=== PATIENT | female | born 1940 | race Caucasian/White ===

== ENCOUNTER → 2016-08-01 16:33 | Outpatient (CLI) | payer MEDICARE ==
[2015-10-13 07:06] VITALS: BMI 24.6
[~2016-08-01 16:33] MED LIST: ASPIRIN 81 MG E81 MG PO; B-12 DOTS500 MCG PO; BENADRYL50 MG PO; BENTYL10 MG PO; BETAGAN 0.5% OPH5 ML EACH EYE; CALCIUM 500 + D1 TAB PO; CARAFATE1 G PO; COUMADIN5 MG PO; ELIQUIS2.5 MG PO; FLORINEF 0.1 M0.1 MG PO; FOLATE0.4 MG PO; GLUCOSAMINE & C1 CAP PO; HYDROCODONE-APA1 TAB PO; K-DUR20 MEQ PO; LEVSIN/ANASP0.125 MG PO; MS CONTIN15 MG PO; MULTIPLE VITAMI1 TA1 PO; NEXIUM40 MG PO; PEPCID40 MG PO; PERCOCET 10/3251 TA1 PO; PRILOSEC20 MG PO; PROBIOTIC1 EAC1 PO; STRESS TAB; SYNTHROID25 MCG PO; THERMOTABS 1 GM1 GM PO; TYLENOL ARTHRITIS PO; [UNRECOGNIZED DRUG - OTHER]
== END | disposition home or self-care (01) ==
LOC: D.MAMMO 07-10 14:45
DX: Z12.31 Encounter for screening mammogram for malignant neoplasm of breast (principal)

== ENCOUNTER → 2018-07-17 17:15 | Outpatient (CLI) | payer MEDICARE ==
[2015-10-13 07:06] VITALS: BMI 24.6
== END | disposition home or self-care (01) ==
LOC: D.MAMMO 13:15
DX: Z12.31 Encounter for screening mammogram for malignant neoplasm of breast (principal)

== ENCOUNTER → 2019-03-11 09:25 | Outpatient (CLI) | payer MEDICARE ==
[2015-10-13 07:06] VITALS: BMI 24.6
--- NOTE | 2019-03-13 08:45 | EC ---
PATIENT:MIGUEL HANKS DATE OF SERVICE: 03/11/19 SEX: F MEDICAL RECORD: [id number] DATE OF : 40 LOCATION:[facility] AGE OF PATIENT: 78 ADMISSION DATE: 03/11/19 REFERRING PHYSICIAN: INTERPRETING PHYSICIAN: TYSON JIMENEZ MD ECHOCARDIOGRAM REPORT ECHO CHARGES 4 ECHO COMPLETE Date: 03/11/19 CLINICAL DIAGNOSIS: SYNCOPE,PALPITATIONS ECHOCARDIOGRAPHIC MEASUREMENTS (adult normal given) AC root (d.<3.7cm) 3.2 cm LV Septum d (<1.2 cm> 1.2 cm Valve Excursion 1.6 cm LV Septum (systole) 1.3 cm Left Atria (s.<4.0cm> 2.9 cm LVPW d(<1.2cm) 1.2 cm RV (d.<2.3cm) 2.5 cm LVPW (sytole) 1.6 cm LV diastole(<5.6CM) 3.5 cm MV E-F(>70mm/sec) cm LV systole 2.3 cm LVOT Diameter 1.6 cm MV exc.(>10mm) 1.3 cm Est.ejection fraction (50-75%) % DOPPLER: LVIT cm/sec A 109 cm/sec E 78.0 cm/sec LA cm/sec RVSP 24 mmHg LVOT 107 cm/sec AOP1/2T 723 m/s Asc. Ao 153 cm/sec RVOT 72 cm/sec RA cm/sec PA 103 cm/sec AV Gradient Peak 9.31 mmHg AV Mean 4.69 mmHg AV Area 1.5 cm MV Gradient Peak 4.47 mmHg MV Mean 1.83 mmHg MV Area cm COMMENTS: Skiver Counter: Yas ASHER Boat Finisher: 3 Dr. Alfonso TAPE# PACS Pericardial Effusion N DATE OF SERVICE: 03/11/2019 Adequate 2D, color flow imaging, spectral Doppler, and M-Mode Borderline LVH. LV internal dimension is normal. Wall motion is normal. EF is greater than or equal to 55%. Aortic valve is tricuspid. No evidence of stenosis by Doppler interrogation. Left atrium normal at 3.9 cm. Mitral valve shows no prolapse. Trace MR. Right-sided chambers are grossly normal. Trace TR. ECHOCARDIOGRAM REPORT [id number] MIGUEL HANKS TRANSINT:[id number] Voice Confirmation ID: [id number] DOCUMENT ID: [id number] TYSON JIMENEZ MD at 0845 CC: [id number] DICTATION DATE: 03/12/19 1350 STRATIGRAPHY TEACHER: 03/12/19 1529 DEP CLI 03/11/19 [place] [id number] [place] [id number]
== END | disposition home or self-care (01) ==
LOC: D.HCCECHO 09:25 → D.HCCARDIO 10:00
PROVIDERS: ATTEND Internal Medicine Interventional Cardiology
DX: R55 Syncope and collapse (principal)

== ENCOUNTER 2019-07-09 07:50 | Day surgery (SDC) | payer MEDICARE ==
[2019-07-08 14:14] LABS: APTT 26.7 SECONDS (22.8-39.4); BASOPHILS 0.3 % (0-2); EOSINOPHILS 3.8 % (0-7); HEMATOCRIT 42.8 % (36.0-48.0); HEMOGLOBIN 14.4 g/dL (12-16); IMMATURE GRANULOCYTES 0.5 % (0-5); INR 0.98 (0.85-1.17); LYMPHOCYTES 16.4 % (15-50); MCH 30.2 pg (26.0-34.0); MCHC 33.6 g/dL (31.0-37.0); MCV 89.7 fL (80.0-100.0); MEAN PLATELET VOLUME 11.4 fL (7.4-10.4); MONOCYTES 9.4 % (2-11); NEUTROPHILS 69.6 % (40-80); RBC 4.77 10x6/uL (4.00-5.40); RDW 13.9 % (11.5-14.5); WBC 10.5 10x3/uL (4.8-10.8)
[2019-07-08 14:19] LABS: PLATELET COUNT 301 10x3/uL (130-400)
[~2019-07-09] VITALS: Ht 165.1 cm; Wt 68.5 kg
--- NOTE | ~2019-07-09 | OP ---
PATIENT NAME: MIGUEL HANKS MEDICAL RECORD: [id number] :40 LOCATION:[facility] ADMISSION DATE: SURGEON: JEANNE KATE MD DATE OF OPERATION: 07/09/2019 DATE OF SERVICE: 07/09/2019 PREOPERATIVE DIAGNOSES: Lumbar spinal stenosis and foraminal stenosis L2-L3 and L3-L4, left. POSTOPERATIVE DIAGNOSES: Lumbar spinal stenosis and foraminal stenosis L2-L3 and L3-L4, left. PROCEDURE: Lumbar laminotomy, medial facetectomy and foraminotomy L2-L3 and L3-L4 left with METRx retractor. SURGEON: Jeanne Kate MD DESCRIPTION AND TECHNIQUE: After induction of general endotracheal anesthesia, the patient was rolled prone on a [place] frame. Lumbar spine was prepped and draped in usual sterile fashion. Fluoroscopic x-ray and spinal needle localized the L2-L3 interspace on the left side. After infiltration of 1:100,000 epinephrine and 1% lidocaine, a stab incision was created with a #11 blade. A series of dilators was used to advance a METRx retractor to the L2-L3 interspace on the left side. The level was confirmed with fluoroscopic x-ray. A microscope and Midas Rei drill were used to perform laminotomy, medial facetectomy and foraminotomy at L2-L3 and L3-L4 on the left. Hypertrophied ligamentum flavum was removed at L2-L3 and L3-L4 on the left. This decompressed the L2, L3 and L4 nerve roots well. The disc space was inspected and found to cause no significant nerve root compression. Meticulous hemostasis was maintained throughout the wound. Wound was irrigated with copious amounts of Ancef irrigant solution. The retractor was removed. The fascia was closed with 2-0 Vicryl suture, the subdermal layer was closed with 3-0 Vicryl suture. The skin was closed with alis. A sterile dressing was applied to the wound. The patient was awakened in good condition and taken to recovery. All counts were reported as correct. Estimated blood loss was minimal. TRANSINT:[id number] Voice Confirmation ID: [id number] DOCUMENT ID: [id number] JEANNE KATE MD CC: [id number] DICTATION DATE: 07/30/19 1006 RESIDENTIAL FINISH CARPENTER: 07/30/19 1114 [facility] [place] 07/09/19 [facility] [address] [place] [address]
[~2019-07-09 07:50] MED LIST changes: +ALEVE220 MG; +FLUTICASONE PRO16 GM; +MERIBIN5 MG PO; +VITAMIN D250000 UNIT PO
[2019-07-09 08:26] VITALS: BP 138/67; Ht 165.1 cm; Wt 68.5 kg
[2019-07-09] MEDS ORDERED: HYDROCODON-ACE1 EA10 PO (13:09)
--- NOTE | 2019-07-09 13:38 | NUR ---
2402 PATIENT AWAKE. GOOD DORSIFLEXION AND PLANTARFLEXION BILATERALLY
--- NOTE | 2019-07-09 14:22 | NUR ---
1415 ANESTHESIA NOTIFIED OF LEFT EYE SLIGHTLY RED AROUND OUTER EYE. STATED SHE FEELS SOMETHING IS IN HER EYE (GRAVEL)
--- NOTE | 2019-07-09 14:55 | NUR ---
1455 IV REMOVED AND DRESSING REINFORCED TO BACK, POST OP INSTRUCTIONS GIVEN AND DR REESE AT BEDSIDE WITH INTRUCTIONS ON MEDICATION FOR BILATERAL CORNEAL ABRASHIONS
== END 2019-07-09 15:15 | disposition home or self-care (01) ==
LOC: D.OPS 07:50 → D.PAN 10:15 → D.OPS 10:15
PROVIDERS: Anesthesiology; ATTEND Neurological Surgery
DX: M54.16 Radiculopathy, lumbar region (principal); M48.061 Spinal stenosis, lumbar region without neurogenic claudication; E03.9 Hypothyroidism, unspecified; E55.9 Vitamin D deficiency, unspecified; K76.0 Fatty (change of) liver, not elsewhere classified; M17.10 Unilateral primary osteoarthritis, unspecified knee

== ENCOUNTER → 2020-02-17 12:28 | Outpatient (CLI) | payer MEDICARE ==
[2019-07-09 08:26] VITALS: BMI 25.1
[~2020-02-17 12:28] MED LIST changes: +HYDROCODON-ACE1 EA10 PO
--- NOTE | 2020-02-19 08:19 | EC ---
PATIENT:MIGUEL HANKS DATE OF SERVICE: 02/17/20 SEX: F MEDICAL RECORD: [id number] DATE OF : 40 LOCATION:[facility] AGE OF PATIENT: 79 ADMISSION DATE: 02/17/20 REFERRING PHYSICIAN: INTERPRETING PHYSICIAN: TYSON JIMENEZ MD ECHOCARDIOGRAM REPORT ECHO CHARGES 4 ECHO COMPLETE Date: 02/17/20 CLINICAL DIAGNOSIS: PALPITATIONS,ORTHOSTATIC HYOPTENSION, ASSESS FOR CARDIO MYOPATHY OR AORTIC STENOSIS ECHOCARDIOGRAPHIC MEASUREMENTS (adult normal given) AC root (d.<3.7cm) 3.1 cm LV Septum d (<1.2 cm> 1.3 cm Valve Excursion 1.4 cm LV Septum (systole) 1.8 cm Left Atria (s.<4.0cm> 3.1 cm LVPW d(<1.2cm) 1.4 cm RV (d.<2.3cm) 2.3 cm LVPW (sytole) 1.7 cm LV diastole(<5.6CM) 3.9 cm MV E-F(>70mm/sec) cm LV systole 2.7 cm LVOT Diameter 1.4 cm MV exc.(>10mm) 1.0 cm Est.ejection fraction (50-75%) % DOPPLER: LVIT cm/sec A 108.0cm/sec E 65.0 cm/sec LA cm/sec RVSP 15 mmHg LVOT 93 cm/sec AOP1/2T 407 m/s Asc. Ao 118 cm/sec RVOT 63 cm/sec RA cm/sec PA 100 cm/sec AV Gradient Peak 5.59 mmHg AV Mean 3.01 mmHg AV Area 1.2 cm MV Gradient Peak 4.79 mmHg MV Mean 1.75 mmHg MV Area cm COMMENTS: Communication Specialist: 2 BLANCA ASHER [employer] Account Assistant: 3 Dr. Alfonso TAPE# PACS Pericardial Effusion N DATE OF SERVICE: Adequate 2D, color flow imaging, spectral Doppler, and M-Mode. Mild LVH. LV internal dimensions are normal. Wall motion is normal. EF is greater than or equal to 55%. Aortic valve is sclerosed without stenosis by Doppler interrogation. Mild AI by color-flow imaging. Left atrium is normal at 3.1 cm. Mitral valve shows no prolapse. Trace MR. Right-sided chambers are grossly normal. Trace TR. ECHOCARDIOGRAM REPORT [id number] MIGUEL HANKS TRANSINT:[id number] Voice Confirmation ID: [id number] DOCUMENT ID: [id number] TYSON JIMENEZ MD at 0819 CC: [id number] DICTATION DATE: 02/18/20 1320 RECEPTIONIST SECRETARY: 02/18/20 194 DEP CLI 02/17/20 [facility] [address] [place] [id number]
== END | disposition home or self-care (01) ==
LOC: D.HCCECHO 12:28
PROVIDERS: ATTEND Internal Medicine Interventional Cardiology
DX: R00.2 Palpitations (principal)

== ENCOUNTER → 2020-02-25 10:08 | Outpatient (CLI) | payer MEDICARE ==
[2019-07-09 08:26] VITALS: BMI 25.1
== END | disposition home or self-care (01) ==
LOC: D.US 10:08
PROVIDERS: ATTEND Family Medicine
DX: R55 Syncope and collapse (principal)

== ENCOUNTER → 2020-03-22 09:06 | Outpatient (CLI) | payer MEDICARE ==
[2019-07-09 08:26] VITALS: BMI 25.1
== END | disposition home or self-care (01) ==
LOC: D.HCCARDIO 09:06
PROVIDERS: ATTEND Internal Medicine Cardiovascular Disease
DX: R07.9 Chest pain, unspecified (principal)